=== PATIENT | male | born 1970 ===

== ENCOUNTER 2016-11-02 01:07 | Observation (INO) | payer MEDICAID ==
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
[2016-11-02 02:58] LABS: BASO # 0.1 K/uL (0.0-0.2); BASO % 0.6 % (0.0-2.0); EOS # 0.1 K/uL (0.0-0.7); EOS % 1.2 % (0.0-4.0); HEMATOCRIT 37.7 % (35.0-51.0); LYMPH # 3.1 K/uL (1.0-4.3); LYMPH % 28.3 % (20.0-40.0); MEAN CELL VOLUME 88.3 fL (80.0-94.0); MEAN CORPUSCULAR HEMOGLOBIN 28.9 pg (27.0-31.0); MEAN CORPUSCULAR HGB CONC 32.7 g/dL (33.0-37.0); MEAN PLATELET VOLUME 7.1 fL (7.2-11.7); MONO # 0.7 K/uL (0.0-0.8); MONO % 6.5 % (0.0-10.0); RED CELL DISTRIBUTION WIDTH 15.6 % (11.5-14.5)
[2016-11-02 03:05] LABS: CHLORIDE 100 mmol/L (98-107)
[2016-11-02 03:06] LABS: POTASSIUM 4.2 mmol/L (3.6-5.2); SODIUM 142 mmol/L (132-148)
[2016-11-02 03:08] LABS: ALB/GLOB RATIO 1.3 (1.0-2.1); ALKALINE PHOSPHATASE 84 U/L (38-126); AST/SGOT 22 U/L (17-59); BILIRUBIN,TOTAL 0.5 mg/dL (0.2-1.3); BLOOD UREA NITROGEN 9 mg/dL (9-20); CARBON DIOXIDE 27 mmol/L (22-30); GFR AFRICAN-AMERICAN > 60; INR 1.1
[2016-11-02 03:09] LABS: ALT/SGPT 19 U/L (21-72); CALCIUM 8.9 mg/dl (8.6-10.4); GLUCOSE,RANDOM 100 mg/dL (75-110)
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
--- NOTE | 2016-11-02 03:27 | C.PDOC ---
Time Seen by Provider: 11/02/16 01:45 Chief Complaint (Nursing): Headache Past Medical History Vital Signs: Last Vital Signs Temp 97.8 F 11/02/16 01:16 Pulse 75 11/02/16 02:53 Resp 18 11/02/16 02:53 BP 107/64 11/02/16 02:53 Pulse Ox 95 11/02/16 02:53 - Medical History PMH: Bipolar Disorder, Post Traumatic Stress Disorder Denies: Diabetes, Hepatitis, HIV, HTN, Seizures, Sexually Transmitted Disease - [facility] Procedures DETOXIFICATION SERVICES FOR SUBSTANCE ABUSE TREATMENT (04/12/16) Family History: States: Unknown Family Hx - Social History Hx Tobacco Use: Yes (heavy smoker) Hx Alcohol Use: No Hx Substance Use: No (PT DENIES) - Immunization History Hx Tetanus Toxoid Vaccination: Yes Hx Influenza Vaccination: Yes Hx Pneumococcal Vaccination: Yes ED Course And Treatment - Laboratory Results Result Diagrams: 11/02/16 02:54 11/02/16 02:54 O2 Sat by Pulse Oximetry: 95 - CT Scan/US Head CT Other Rad Studies (CT/US): Read By Radiologist (June Horton MD), Radiology Report Reviewed CT/US Interpretation: Impression: There is subdural soft tissue at the craniotomy site, this is favored to be related to the recent. procedure, correlation with expected postoperative appearance is advised. No other extra- axial. abnormalities status post craniotomy with no evidence to suggest acute fracture. Please note it is not possible to exclude a very small, less than 4 mm, subdural hemorrhage at the. craniotomy site . Extracranial tissues without apparent acute injury noting defects associated with the craniotomy
[2016-11-02] MEDS ORDERED: Gadodiamide 287 MG/ML VIAL (15ML) IV ONE ×2 (08:53)
--- NOTE | 2016-11-02 10:21 | MRI ---
PROCEDURE: MRI BRAIN WITH AND WITHOUT CONTRAST HISTORY: post-op contusion to R temporal ? SDH/EDH noted CT COMPARISON: Comparison is made to the previous CT dated 11/02/2016 previous MRI dated 07/26/2016 TECHNIQUE: Multiplanar, multisequence MR images of the brain were obtained with and without intravenous contrast enhancement. FINDINGS: HEMORRHAGE: There is linear increased T1 signal seen at the right frontal convexity suggestive of trace extra-axial acute hemorrhage. No evidence of significant mass effect. DWI: No evidence of an acute or early subacute infarction. BRAIN PARENCHYMA: Postsurgical changes and encephalomalacia at the right frontal lobe are noted. There is residual vasogenic edema surrounding the encephalomalacia at the right frontal lobe without evidence of significant mass effect or midline shift. No atrophy or chronic microvascular ischemic changes. ENHANCEMENT: Linear foci of enhancement seen around the right frontal encephalomalacia may represent postsurgical granuloma. The possibility of residual lesion/ or residual tumor is not totally excluded. No evidence of other abnormal enhancement in the brain. VENTRICLES: Unremarkable. No hydrocephalus. CRANIUM: Unremarkable. ORBITS: Grossly unremarkable. PARANASAL SINUSES/MASTOIDS: Clear VASCULAR SYSTEM: Skull base flow voids intact. OTHER FINDINGS: None . IMPRESSION: Thin approximately 2 millimeter linear hyperintense T1 signal at the right frontal convexity suspicious for trace subdural/ extra-axial hematoma. No evidence of mass effect or midline shift. Postsurgical changes at the right frontal lobe consistent with the patient's recent right frontal lobe lesion excision. Foci of enhancement surrounding the right frontal encephalomalacia likely represent postsurgical changes. Residual tumor is not totally excluded. If clinically warranted follow-up reassessment after 3 months by enhanced MRI is suggested.
[2016-11-02] MEDS ORDERED: DiphenhydrAMINE 50 mg/ml Inj IVP STA (11:58)
[2016-11-02 12:21] VITALS: BP 126/87; PULSE 83; RESP 18; TEMP 97.9; O2SAT 98
== END 2016-11-02 12:10 | disposition home or self-care (01) ==
LOC: C.ER 01:07 → C.9OBSV 03:23
PROVIDERS: ADMIT Internal Medicine; ATTEND Internal Medicine
DX: S00.03XA Contusion of scalp, initial encounter (principal); W22.8XXA Striking against or struck by other objects, initial encounter; D49.6 Neoplasm of unspecified behavior of brain; Z98.890 Other specified postprocedural states
CPT/HCPCS: 70450; 70552; 80053; 83690; 85025; 85610; 85730; 99285; A9579; G0378